=== PATIENT | female | born 1960 | race Two or more races ===

== ENCOUNTER 2022-05-04 10:15 | Emergency (ER) | payer MEDICARE ==
[~2022-05-04] VITALS: Ht 154.9 cm; Wt 54.6 kg
[2022-05-04] VITALS (11 sets, daily range): BP systolic 101–127; BP diastolic 46–68
[2022-05-04 10:52] LABS: HEMATOCRIT 41.2 % (37.0-47.0); HEMOGLOBIN 14.1 g/dl (12.0-16.0); IMMATURE GRANULOCYTES 0.2 % (0.0-5.0); MEAN CELL VOLUME 88.6 fL CALC (80.0-100.0); MEAN CORPUSCULAR HGB 30.3 pG CALC (26.0-32.0); MEAN CORPUSCULAR HGB CONC 34.2 g/dL CAL (32.0-36.0); NEUT# 2.42 thou/uL (2.00-7.15); RED BLOOD COUNT 4.65 mill/uL (4.20-5.60); RED CELL DISTRI WIDTH 12.6 % (11.5-15.5)
[2022-05-04 10:58] LABS: GFR FOR AFR.AMER. > 60 ML/MIN (>=60 (CALC)); GFR OTHER RACES > 60 ML/MIN (>=60 (CALC))
[2022-05-04 11:24] LABS: ALBUMIN 4.4 g/dL (3.2-5.0); ALKALINE PHOSPHATASE 73 u/l (38-126); ANION GAP 15 (6-22 (CALC)); BILIRUBIN, TOTAL 0.6 mg/dL (0.0-1.4); BUN 10 mg/dL (8-23); BUN/CREATININE RATIO 15 (12-20 (CALC)); CARBON DIOXIDE 22 mmol/l (22-30); CHLORIDE 105 mmol/l (95-108); CREATININE 0.7 mg/dL (0.5-1.0); GFR FOR AFR.AMER. > 60 ML/MIN (>=60 (CALC)); GFR OTHER RACES > 60 ML/MIN (>=60 (CALC)); LIPASE 109 u/l (23-300); MAGNESIUM 1.9 mg/dL (1.6-2.3); POTASSIUM 4.2 mmol/l (3.5-5.1); SGOT/AST 23 u/l (9-36); SODIUM 138 mmol/l (137-146); TOTAL PROTEIN 7.2 g/dL (6.3-8.2)
[2022-05-04 12:09] LABS: URINE BILIRUBIN - DIPSTICK NEGATIVE (NEGATIVE); URINE BLOOD DIPSTICK NEGATIVE (NEGATIVE); URINE COLOR YELLOW; URINE GLUCOSE - DIPSTICK NEGATIVE (NEGATIVE); URINE KETONE 15 mg/dL (NEGATIVE); URINE LEUK ESTERASE NEGATIVE (NEGATIVE); URINE PROTEIN - DIPSTICK NEGATIVE (NEG-TRACE); URINE SPECIFIC GRAVITY <=1.005; URINE UROBILINOGEN - DIPSTICK 0.2 E.U./dL (0.2)
[2022-05-04 12:23] LABS: URINE NITRITE - DIPSTICK NEGATIVE (Negative)
== END 2022-05-04 13:46 | disposition home or self-care (01) ==
LOC: ED 10:15
PROVIDERS: Family Medicine
DX: R10.84 Generalized abdominal pain (principal)
CPT/HCPCS: Q9967

== ENCOUNTER 2022-06-27 20:57 | Emergency (ER) | payer MEDICARE ==
[~2022-06-27] VITALS: Ht 154.9 cm; Wt 52.7 kg
[~2022-06-27 20:57] MED LIST: BISMUTH SUBSALICYLATE; DULCOLAX5 MG PO; MAG CITRAT1 XX; METRONIDAZOLE; MILK OF MAG30 ML/UDC PO; TETRACYCLINE; TYLENOL500 MG PO; VITAMIN B-121000 MCG PO; VITAMIN D1000 UNIT PO; [UNRECOGNIZED DRUG - OTHER] PO
[2022-06-27 21:25] VITALS: BP 132/71
[2022-06-27] MEDS ORDERED: LORTAB 1010 MG PO (21:45)
[2022-06-27 22:02] VITALS: BP 132/71
== END 2022-06-27 22:45 | disposition home or self-care (01) ==
LOC: ED 20:57
DX: S93.401A Sprain of unspecified ligament of right ankle, initial encounter (principal); W18.30XA Fall on same level, unspecified, initial encounter; Y92.009 Unspecified place in unspecified non-institutional (private) residence as the place of occurrence of the external cause

== ENCOUNTER 2022-12-17 20:28 | Emergency (ER) | payer MEDICARE ==
[~2022-12-17] VITALS: Ht 154.9 cm; Wt 53.6 kg
[2022-12-17] VITALS (10 sets, daily range): BP systolic 103–138; BP diastolic 49–76
[~2022-12-17 20:28] MED LIST changes: +LORTAB 1010 MG PO
[2022-12-17 22:06] LABS: BASO% 0.2 % (0-3); EOS% 2.5 % (0-8); HEMATOCRIT 39.8 % (37.0-47.0); HEMOGLOBIN 12.6 g/dl (12.0-16.0); IMMATURE GRANULOCYTES 0.2 % (0.0-5.0); LYMPH% 27.3 % (15-41); MEAN CELL VOLUME 93.2 fL CALC (80.0-100.0); MEAN CORPUSCULAR HGB 29.5 pG CALC (26.0-32.0); MEAN CORPUSCULAR HGB CONC 31.7 g/dL CAL (32.0-36.0); MONO% 7.2 % (2-13); NEUT# 3.46 thou/uL (2.00-7.15); NEUT% 62.6 % (42-76); RED BLOOD COUNT 4.27 mill/uL (4.20-5.60); RED CELL DISTRI WIDTH 12.9 % (11.5-15.5)
[2022-12-17 22:17] LABS: ALKALINE PHOSPHATASE 65 u/l (38-126); ANION GAP 9 (6-22 (CALC)); BILIRUBIN, TOTAL 0.4 mg/dL (0.02-1.3); BUN 13 mg/dL (8-23); BUN/CREATININE RATIO 13 (12-20 (CALC)); CARBON DIOXIDE 29 mmol/l (22-30); CHLORIDE 105 mmol/l (95-108); CREATININE 0.9 mg/dL (0.5-1.0); GFR FOR AFR.AMER. > 60 ML/MIN (>=60 (CALC)); GFR OTHER RACES > 60 ML/MIN (>=60 (CALC)); POTASSIUM 4.3 mmol/l (3.5-5.1); SGOT/AST 24 u/l (9-36); SODIUM 138 mmol/l (137-146); TOTAL PROTEIN 6.7 g/dL (6.3-8.2)
[2022-12-18 00:22] VITALS: BP 95/64
[2022-12-18] MEDS ORDERED: ADDERALL30 MG PO (16:59)
[2022-12-19] MEDS ORDERED: DIAZEPAM10 MG PO (11:41)
[2022-12-19] MEDS ORDERED: ATORVASTATIN CA10 MG PO (11:42)
[2022-12-19] MEDS ORDERED: ADDERALL XR30 MG PO (11:42)
[2022-12-19] MEDS ORDERED: OMEPRAZOLE DR40 MG PO (11:43)
[2022-12-19] MEDS ORDERED: AMBIEN10 MG PO (11:44)
[2022-12-19] MEDS ORDERED: [UNRECOGNIZED DRUG - OTHER] (11:50)
== END 2022-12-18 00:41 | disposition home or self-care (01) ==
LOC: ED 20:28
PROVIDERS: Emergency Medicine
DX: S30.0XXA Contusion of lower back and pelvis, initial encounter (principal); I10 Essential (primary) hypertension; G89.29 Other chronic pain; V86.69XA Passenger of other special all-terrain or other off-road motor vehicle injured in nontraffic accident, initial encounter
CPT/HCPCS: Q9967

== ENCOUNTER 2022-12-18 12:18 | Observation (INO) | payer MEDICARE ==
[~2022-12-18] VITALS: Ht 157.5 cm; Wt 122.9 kg
[2022-12-18] VITALS (17 sets, daily range): BP systolic 73–114; BP diastolic 40–64
[2022-12-18 13:29] LABS: BASO% 0.3 % (0-3); HEMOGLOBIN 13.6 g/dl (12.0-16.0); IMMATURE GRANULOCYTES 0.1 % (0.0-5.0); LYMPH% 20.5 % (15-41); MEAN CELL VOLUME 93.7 fL CALC (80.0-100.0); MEAN CORPUSCULAR HGB 29.6 pG CALC (26.0-32.0); MEAN CORPUSCULAR HGB CONC 31.6 g/dL CAL (32.0-36.0); MONO% 6.9 % (2-13); NEUT# 5.05 thou/uL (2.00-7.15); NEUT% 71.2 % (42-76); RED BLOOD COUNT 4.59 mill/uL (4.20-5.60); RED CELL DISTRI WIDTH 12.8 % (11.5-15.5)
[2022-12-18 14:45] LABS: ALBUMIN 3.8 g/dL (3.2-5.0); ALKALINE PHOSPHATASE 58 u/l (38-126); ANION GAP 9 (6-22 (CALC)); BILIRUBIN, TOTAL 0.5 mg/dL (0.02-1.3); BUN 9 mg/dL (8-23); BUN/CREATININE RATIO 16 (12-20 (CALC)); CARBON DIOXIDE 25 mmol/l (22-30); CHLORIDE 107 mmol/l (95-108); CREATININE 0.6 mg/dL (0.5-1.0); GFR FOR AFR.AMER. > 60 ML/MIN (>=60 (CALC)); GFR OTHER RACES > 60 ML/MIN (>=60 (CALC)); POTASSIUM 4.1 mmol/l (3.5-5.1); SGOT/AST 23 u/l (9-36); SODIUM 137 mmol/l (137-146); TOTAL PROTEIN 6.5 g/dL (6.3-8.2)
[2022-12-18] MEDS ORDERED: ADDERALL30 MG PO (16:59)
[2022-12-19 04:01] VITALS: BP 110/46
[2022-12-19 05:21] LABS: BASO% 0.2 % (0-3); HEMATOCRIT 43.5 % (37.0-47.0); HEMOGLOBIN 13.2 g/dl (12.0-16.0); IMMATURE GRANULOCYTES 0.2 % (0.0-5.0); LYMPH% 21.2 % (15-41); MEAN CELL VOLUME 98.6 fL CALC (80.0-100.0); MEAN CORPUSCULAR HGB 29.9 pG CALC (26.0-32.0); MEAN CORPUSCULAR HGB CONC 30.3 g/dL CAL (32.0-36.0); NEUT# 3.59 thou/uL (2.00-7.15); NEUT% 72.4 % (42-76); RED BLOOD COUNT 4.41 mill/uL (4.20-5.60)
[2022-12-19 05:46] LABS: ALBUMIN 3.7 g/dL (3.2-5.0); ALKALINE PHOSPHATASE 56 u/l (38-126); ANION GAP 9 (6-22 (CALC)); BILIRUBIN, TOTAL 0.5 mg/dL (0.02-1.3); BUN 5 mg/dL (8-23); BUN/CREATININE RATIO 9 (12-20 (CALC)); CARBON DIOXIDE 29 mmol/l (22-30); CHLORIDE 104 mmol/l (95-108); CREATININE 0.6 mg/dL (0.5-1.0); GFR FOR AFR.AMER. > 60 ML/MIN (>=60 (CALC)); GFR OTHER RACES > 60 ML/MIN (>=60 (CALC)); SGOT/AST 23 u/l (9-36); SODIUM 138 mmol/l (137-146); TOTAL PROTEIN 6.3 g/dL (6.3-8.2)
[2022-12-19 07:09] VITALS: BP 96/42
[2022-12-19 09:58] LABS: URINE BILIRUBIN - DIPSTICK NEGATIVE (NEGATIVE); URINE BLOOD DIPSTICK TRACE-INTACT (NEGATIVE); URINE CLARITY CLEAR; URINE COLOR YELLOW; URINE GLUCOSE - DIPSTICK NEGATIVE (NEGATIVE); URINE KETONE 40 mg/dL (NEGATIVE); URINE LEUK ESTERASE NEGATIVE (Negative); URINE NITRITE - DIPSTICK NEGATIVE (Negative); URINE PH 5.5 (4.5-8.0); URINE PROTEIN - DIPSTICK NEGATIVE (NEG-TRACE); URINE SPECIFIC GRAVITY >=1.030; URINE UROBILINOGEN - DIPSTICK 0.2 E.U./dL (0.2)
[2022-12-19] MEDS ORDERED: DIAZEPAM10 MG PO (11:41)
[2022-12-19] MEDS ORDERED: ATORVASTATIN CA10 MG PO (11:42)
[2022-12-19] MEDS ORDERED: ADDERALL XR30 MG PO (11:42)
[2022-12-19] MEDS ORDERED: OMEPRAZOLE DR40 MG PO (11:43)
[2022-12-19] MEDS ORDERED: AMBIEN10 MG PO (11:44)
[2022-12-19] MEDS ORDERED: [UNRECOGNIZED DRUG - OTHER] (11:50)
[2022-12-19 16:31] VITALS: BP 88/39
[2022-12-19 16:32] VITALS: BP 93/47
[2022-12-19 20:17] VITALS: BP 92/60
[2022-12-20 04:49] VITALS: BP 100/40
[2022-12-20 05:19] LABS: BASO% 0.2 % (0-3); EOS% 3.5 % (0-8); HEMATOCRIT 38.4 % (37.0-47.0); HEMOGLOBIN 12.4 g/dl (12.0-16.0); IMMATURE GRANULOCYTES 0.2 % (0.0-5.0); MEAN CELL VOLUME 94.6 fL CALC (80.0-100.0); MEAN CORPUSCULAR HGB 30.5 pG CALC (26.0-32.0); MEAN CORPUSCULAR HGB CONC 32.3 g/dL CAL (32.0-36.0); MONO% 6.3 % (2-13); NEUT# 3.88 thou/uL (2.00-7.15); NEUT% 64.8 % (42-76); RED BLOOD COUNT 4.06 mill/uL (4.20-5.60); RED CELL DISTRI WIDTH 12.5 % (11.5-15.5)
[2022-12-20 05:33] LABS: ALBUMIN 3.2 g/dL (3.2-5.0); ALKALINE PHOSPHATASE 50 u/l (38-126); ANION GAP 8 (6-22 (CALC)); BILIRUBIN, TOTAL 0.7 mg/dL (0.02-1.3); BUN 8 mg/dL (8-23); BUN/CREATININE RATIO 14 (12-20 (CALC)); CARBON DIOXIDE 29 mmol/l (22-30); CHLORIDE 105 mmol/l (95-108); CREATININE 0.6 mg/dL (0.5-1.0); GFR FOR AFR.AMER. > 60 ML/MIN (>=60 (CALC)); GFR OTHER RACES > 60 ML/MIN (>=60 (CALC)); POTASSIUM 4.5 mmol/l (3.5-5.1); SGOT/AST 17 u/l (9-36); SODIUM 137 mmol/l (137-146); TOTAL PROTEIN 5.5 g/dL (6.3-8.2)
[2022-12-20 07:55] VITALS: BP 116/65
[2022-12-20] MEDS ORDERED: LORTAB 1010 MG PO ×2 (11:08→12:06)
== END 2022-12-20 11:28 | disposition home or self-care (01) ==
LOC: ED 12:18 → ED-I 15:30 → ED 15:55 → MS2 15:56
PROVIDERS: Family Medicine; Nurse Practitioner Family; ADMIT Internal Medicine; ATTEND Internal Medicine
PROC: 0T9B70Z Drainage of Bladder with Drainage Device, Via Natural or Artificial Opening (ICD-10-PCS; principal; 2022-12-18)
DX: S30.0XXA Contusion of lower back and pelvis, initial encounter (principal); M25.552 Pain in left hip; I10 Essential (primary) hypertension; K59.09 Other constipation; G90.50 Complex regional pain syndrome I, unspecified; Z90.49 Acquired absence of other specified parts of digestive tract; V86.69XA Passenger of other special all-terrain or other off-road motor vehicle injured in nontraffic accident, initial encounter
CPT/HCPCS: J1650